=== PATIENT | female | born 1955 | race African-American/Black ===

== ENCOUNTER → 2017-03-05 | Outpatient (CLI) | payer OTHER ==
--- NOTE | 2017-03-05 09:12 | RAD ---
DATE: 03/05/2017 EXAM: DIGITAL SCREEN BILAT W/CAD HISTORY: Screening COMPARISON: 01/02/2016 This study was interpreted with the benefit of Computerized Aided Detection (CAD). FINDINGS: Breast Density: FATTY The Breast Parenchyma is primarily fatty replaced. Breast parenchyma level density A.. No dominant mass or suspect group calcifications is seen in either breast IMPRESSION: Benign findings BI-RADS CATEGORY: 2 BENIGN FINDING(S) RECOMMENDED FOLLOW-UP: 12M 12 MONTH FOLLOW-UP PQRS compliance statement: Patient information was entered into a reminder system with a target due date 03/05/2018 for the next mammogram. Mammography is a sensitive method for finding small breast cancers, but it does not detect them all and is not a substitute for careful clinical examination. A negative mammogram does not negate a clinically suspicious finding and should not result in delay in biopsying a clinically suspicious abnormality. "Our facility is accredited by the [employer] Mammography Program."
== END | disposition home or self-care (01) ==
LOC: MAMMO 08:50
PROVIDERS: ATTEND Family Medicine
DX: Z12.31 Encounter for screening mammogram for malignant neoplasm of breast (principal)
CPT/HCPCS: G0202; 77067

== ENCOUNTER → 2018-03-18 | Outpatient (CLI) | payer OTHER | END | disposition home or self-care (01) | LOC: MAMMO 11:51 | DX: Z12.31 Encounter for screening mammogram for malignant neoplasm of breast (principal) | CPT/HCPCS: 77063; 77067 ==

== ENCOUNTER → 2019-03-21 | Outpatient (CLI) | payer OTHER ==
--- NOTE | 2019-03-21 13:20 | RAD ---
DATE: 03/21/2019 EXAM: MAMMO NARINDER SCREENING BILATERAL HISTORY: Routine screening COMPARISON: 03/18/2018 This study was interpreted with the benefit of Computerized Aided Detection (CAD). Breast Density: SCATTERED The breast parenchyma shows scattered fibroglandular densities. Breast parenchyma level B. FINDINGS: 2-D and 3-D tomosynthesis imaging was performed in CC and MLO projections. No new or enlarging breast densities are seen. No suspicious microcalcifications are evident. IMPRESSION: There is no mammographic evidence of malignancy in either breast. BI-RADS CATEGORY: 2 BENIGN FINDING(S) RECOMMENDED FOLLOW-UP: 12M 12 MONTH FOLLOW-UP PQRS compliance statement: Patient information was entered into a reminder system with a target due date for the next mammogram. Mammography is a sensitive method for finding small breast cancers, but it does not detect them all and is not a substitute for careful clinical examination. A negative mammogram does not negate a clinically suspicious finding and should not result in delay in biopsying a clinically suspicious abnormality. "Our facility is accredited by the [employer] Mammography Program."
== END | disposition home or self-care (01) ==
LOC: MAMMO 09:52
PROVIDERS: ATTEND Family Medicine
DX: Z12.31 Encounter for screening mammogram for malignant neoplasm of breast (principal)
CPT/HCPCS: 77063; 77067

== ENCOUNTER → 2021-05-03 | Outpatient (CLI) | payer OTHER ==
[~2021-05-03] MED LIST: BUPIVACAINE MPF 0.5% 10 ML VIAL. INT ART ONE; IOHEXOL 300 MG/ML 50 ML VIAL. INT ART ONE; LIDOCAINE 1% Multi-Dose 20 ML VIAL. ID ONE; LOSA1TAB25 PO; methylPREDNISolone ACETATE 40 MG/ML VIAL. INT ART ONE
--- NOTE | 2021-05-03 17:19 | KCIC ---
EXAM: Fluoroscopically guided left hip joint injection of steroid and anesthetic INDICATION: Hip pain, arthritis COMPARISON: Left hip radiograph 02/04/2021 TECHNIQUE/FINDINGS: The purpose of the procedure and risks including infection, bleeding, contrast reaction, and pain wer e discussed with the patient. Informed consent was obtained. A timeout was performed. After obtaining consent, the patient was placed supine on the fluoroscopy table with the left hip int ernally rotated. The skin overlying the left hip was marked, sterilized and draped. Superficial and deep soft tissues were anesthetized with 1% lidocaine. Utilizing fluoroscopic guidance, a 22-gauge 3.5" needle was advanced into the joint. Intraarticular position was confirmed with injection of a sm all amount of iodinated contrast. Subsequently, a solution containing the following items was instill ed into the joint: 1 mL Depo-Medrol (80 mg/mL), 4 mL 0.5 percent bupivacaine 1 mL 1 percent lidocaine . At the end of the procedure, the needle was removed. The overlying skin was cleansed and covered w ith a bandaid. The patient tolerated the procedure well and was free of immediate complications. Tota l fluoroscopy time: 40 seconds.. IMPRESSION: Technically successful fluoroscopically guided left hip joint injection of steroid and a nesthetic. Electronically signed by: Wendy Booker MD (05/03/2021 5:16 PM) [id number]
== END | disposition home or self-care (01) ==
LOC: KCIC 14:29
PROVIDERS: ATTEND Orthopaedic Surgery
DX: M16.12 Unilateral primary osteoarthritis, left hip (principal); Z79.899 Other long term (current) drug therapy
CPT/HCPCS: 20610; 77002; J1030; J3490; Q9967

== ENCOUNTER → 2022-01-20 | Outpatient (CLI) | payer OTHER ==
[~2022-01-20] MED LIST changes: -BUPIVACAINE MPF 0.5% 10 ML VIAL. INT ART ONE; +ERGO2000 PO; +FERR325T14 PO; +HYDR12.575 PO; -IOHEXOL 300 MG/ML 50 ML VIAL. INT ART ONE; -LIDOCAINE 1% Multi-Dose 20 ML VIAL. ID ONE; +LOSA100T14 PO; -methylPREDNISolone ACETATE 40 MG/ML VIAL. INT ART ONE
[2022-01-20 09:17] LABS: BASO % 0 % (0-3); EOS # 0.1 x10^3/uL (0.0-0.7); EOS % 1 % (0-3); HEMATOCRIT 35.9 % (36.0-47.0); HEMOGLOBIN 11.8 g/dL (12.0-15.5); LYMPH # 1.7 x10^3/uL (1.0-4.8); LYMPH % 33 % (24-48); MEAN CORPUSCULAR HEMOGLOBIN 30 pg (25-35); MEAN CORPUSCULAR HGB CONC 33 g/dL (31-37); MEAN CORPUSCULAR VOLUME 93 fL (79-100); MONO # 0.3 x10^3/uL (0.0-1.1); MONO % 5 % (0-9); NEUT # 3.1 x10^3/uL (1.8-7.7); NEUT % 60 % (31-73); PLATELET COUNT 254 x10^3/uL (140-400); RED BLOOD COUNT 3.88 x10^6/uL (3.50-5.40); RED CELL DISTRIBUTION WIDTH 13.8 % (11.5-14.5); WHITE BLOOD COUNT 5.1 x10^3/uL (4.0-11.0)
[2022-01-20 09:20] LABS: PROTHROMBIN TIME PATIENT 12.7 SEC (11.7-14.0)
[2022-01-20 09:29] LABS: CALCIUM 9.5 mg/dL (8.5-10.1); CREATININE 1.2 mg/dL (0.6-1.0); GFR 53.9; POTASSIUM 3.7 mmol/L (3.5-5.1)
--- NOTE | 2022-01-20 12:28 | EKG ---
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
--- NOTE | 2022-01-20 15:08 | RAD ---
EXAM: XR CHEST 2V 01/20/2022 12:51 PM CLINICAL INDICATION: Preop right hip replacement 02/03/2022 COMPARISON: None TECHNIQUE: PA and lateral views of the chest FINDINGS: The heart and mediastinum are normal. Lungs are well-expanded and clear. No consolidatio n, pleural effusion, or pneumothorax. Pulmonary vascularity is normal. No acute osseous abnormality. 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 Severe bilateral acromioclavicular degenerative joint d isease. IMPRESSION: No acute cardiopulmonary abnormality. Electronically signed by: Wendy Booker MD (01/20/2022 3:06 PM) [id number]
[2022-01-21 00:34] LABS: HEMOGLOBIN A1C 5.8 % (4.8-5.6)
== END ==
LOC: SURGPAT 12:36
PROVIDERS: ATTEND Orthopaedic Surgery
DX: Z01.818 Encounter for other preprocedural examination (principal); M51.34 Other intervertebral disc degeneration, thoracic region; M16.12 Unilateral primary osteoarthritis, left hip; M19.012 Primary osteoarthritis, left shoulder; M19.011 Primary osteoarthritis, right shoulder
CPT/HCPCS: 36415; 71046; 80048; 82040; 82306; 83036; 85025; 85610; 85651; 85730; 87641; 93005

== ENCOUNTER 2022-02-03 06:45 | Observation (INO) | payer OTHER, MEDICARE ==
[2022-01-22 11:53] VITALS: BP 162/84
[~2022-02-03] VITALS: Ht 162.6 cm; Wt 3.5 kg
[~2022-02-03 06:45] MED LIST changes: +IV RINGERS,LACTATED 1000ML 1,000 ML IV SCH; +MORPHINE SULFATE 2 MG/ML INJ. IVP PRN; +TRANEXAMIC ACID in NS IVPB 50 ML INJ ONE; +fentaNYL PF VIAL 100 MCG/2 ML VIAL IVP PRN
[2022-02-03] MEDS ORDERED: MELOXICAM 7.5 MG TABLET PO ONE (07:00)
[2022-02-03] MEDS ORDERED: GABAPENTIN 300 MG CAPSULE. PO ONE (07:00)
[2022-02-03 07:25] VITALS: BP 174/89
[2022-02-03] MEDS ORDERED: MELO15TA23 PO (07:25)
[2022-02-03] MEDS ORDERED: GLYCOPYRROLATE 1 MG/5 ML VIAL. ONE (07:30)
[2022-02-03] MEDS ORDERED: LIDOCAINE 2% PF 5 ML VIAL. ONE (07:30)
[2022-02-03] MEDS ORDERED: DEXAMETHASONE SOD PHOS 4 MG/ML VIAL ONE (07:30)
[2022-02-03] MEDS ORDERED: ONDANSETRON PF 4 MG/2 ML VIAL. ONE (07:30)
[2022-02-03] MEDS ORDERED: PROPOFOL 10 MG/ML (20ML) VIAL. IV ONE (07:30)
[2022-02-03] MEDS ORDERED: SEVOFLURANE 61 TO 120 MINUTES. IH ONE ×2 (07:30→08:36)
[2022-02-03] MEDS ORDERED: MIDAZOLAM HCL/PF 2 MG/2 ML VIAL. ONE (07:31)
[2022-02-03] MEDS ORDERED: NEOSTIGMINE METHYLSULFATE 5 MG/5 ML SYRINGE. ONE (07:31)
[2022-02-03] MEDS ORDERED: ROCURONIUM 50 MG/5 ML VIAL. ONE ×2 (07:31→09:25)
[2022-02-03] MEDS ORDERED: fentaNYL PF VIAL 100 MCG/2 ML VIAL ONE ×2 (07:31→08:33)
[2022-02-03] MEDS ORDERED: TRANEXAMIC ACID in NS IVPB 100 ML ONE (07:32)
[2022-02-03] MEDS ORDERED: VANCOMYCIN 1 GM VIAL. ONE (07:32)
--- NOTE | 2022-02-03 07:42 | NUR ---
Removed codeine allergy from profile. Patient stated when she was younger the doctor recommended she not take it due to possible reaction after a procedure that she had.
[2022-02-03] MEDS ORDERED: ACETAMINOPHEN 500 MG TABLET PO PRN (07:45)
[2022-02-03] MEDS ORDERED: TRANEXAMIC ACID in NS IVPB 50 ML INJ ONE (08:00)
[2022-02-03] MEDS: MORPHINE SULFATE 2 MG/ML INJ. IVP PRN ×2 (08:00→10:38)
[2022-02-03] MEDS ORDERED: TV=62ml MORPHINE 5 MG, KETOROLAC 30 MG, ROPIV, EPI INT ART ONE (08:00)
[2022-02-03] MEDS ORDERED: IV DEXTROSE 5% 250 ML BAG. IV PRN (08:30)
[2022-02-03] MEDS ORDERED: 0.9 % SODIUM CHLORIDE 10 ML DISP.SYRIN. IV PRN (08:30)
[2022-02-03] MEDS ORDERED: CALCIUM CARBONATE 500 MG TAB.CHEW PO PRN ×2 (08:30→11:30)
[2022-02-03] MEDS ORDERED: DEXTROSE 50% 25 GM / 50ML DISP.SYRIN. IV PRN (08:30)
[2022-02-03] MEDS ORDERED: diphenhydrAMINE 50 MG/ML VIAL IVP PRN (08:30)
[2022-02-03] MEDS ORDERED: oxyCODONE IR 5 MG TABLET PO PRN (08:30)
[2022-02-03] MEDS: SENNOSIDES/DOCUSATE 8.6/50MG TABLET. PO SCH (09:00)
[2022-02-03] MEDS ORDERED: ESMOLOL 100 MG/10 ML VIAL. IVP ONE (09:07)
[2022-02-03] MEDS ORDERED: PHENYLEPHRINE in 0.9% NACL PF 1 MG/10 ML SYRINGE. IV ONE (09:22)
--- NOTE | 2022-02-03 09:59 | PDOC4 ---
OPERATIVE NOTE Date: Date: February 03, 2022 Pre-Op Diagnosis: 1. 67-year-old female primary osteoarthritis left hip Post-Op Diagnosis: 1. 67-year-old female primary osteoarthritis left hip 2. Status post left total hip arthroplasty Procedure Performed: 1. Left primary total hip arthroplasty Surgeon: Patricia Anesthesia Type: General Blood Loss: 150 cc Specimans Obtained: Products of left total hip arthroplasty. Complications: Patient tolerated the procedure well without any apparent complications. Operative Note: See dictation. JEANINE BEE February 03, 2022 09:59
[2022-02-03] MEDS ORDERED: PROCHLORPERAZINE 10 MG/2 ML VIAL. ONE (10:35)
[2022-02-03] MEDS: PROCHLORPERAZINE 10 MG/2 ML VIAL. IVP PRN ×2 (10:38→11:10)
[2022-02-03] MEDS ORDERED: HYDROmorphone 2 MG/ML INJ. ONE (10:55)
[2022-02-03] MEDS: HYDROmorphone 2 MG/ML INJ. IVP PRN ×2 (11:11→11:57)
--- NOTE | 2022-02-03 11:22 | PDOC1 ---
History and Physical Date of Service: DOS: DATE: 02/03/22 TIME: :22 Chief Complaint: Chief Complain: Status post total hip arthroplasty History of Present Illness: HPI: Patient is a 61-year-old female seen in PACU after undergoing planned left hip arthroplasty. Hospitalist consulted for medical management. Patient underwent hip replacement for osteoarthritis. Other history includes hypertension. Evaluated patient without any sort of complaint. Pain well-controlled. Past Medical/Surgical History: PMH/PSH: Hypertension Allergies: Allergies: Coded Allergies: No Known Drug Allergies (Unverified , 02/03/22) Family History: Family History: No known per patient Social History: Social History: Denies alcohol tobacco drug use Current Medications: Current Medications Current Medications Fentanyl Citrate (Fentanyl 2ml Vial) 25 mcg PRN Q5MIN PRN IVP MILD PAIN 1-3; Start 02/03/22 at 06:00; Stop 02/05/22 at 05:59 Fentanyl Citrate (Fentanyl 2ml Vial) 50 mcg PRN Q5MIN PRN IVP MODERATE PAIN 4- 6; Start 02/03/22 at 06:00; Stop 02/05/22 at 05:59 Morphine Sulfate (Morphine Sulfate) 1 mg PRN Q10MIN PRN IVP SEVERE PAIN 7-10; Start 02/03/22 at 06:00; Stop 02/05/22 at 05:59; Status Cancel Ringer's Solution 1,000 ml @ 30 mls/hr Q24H IV Last administered on 02/03/22at 07:36; Start 02/03/22 at 06:00; Stop 02/04/22 at 05:59 Hydromorphone HCl (Dilaudid) 0.5 mg PRN Q10MIN PRN IVP SEVERE PAIN 7-10, 2nd CHOICE Last administered on 02/03/22at 11:11; Start 02/03/22 at 06:00; Stop 02/05/22 at 05:59 Prochlorperazine Edisylate (Compazine) 5 mg PACU PRN PRN IVP NAUSEA, MRX1 Last administered on 02/03/22at 11:10; Start 02/03/22 at 06:00; Stop 02/05/22 at 05:59 Tranexamic Acid 50 ml @ 50 mls/hr 1X PERIOP ONCE INJ Last administered on 02/03/22at 09:02; Start 02/03/22 at 06:00; Stop 02/03/22 at 07:00; Status DC Tranexamic Acid 50 ml @ 50 mls/hr 1X PERIOP ONCE INJ ; Start 02/03/22 at 08:00; Stop 02/03/22 at 08:59; Status DC Cefazolin Sodium/ Dextrose 50 ml @ 100 mls/hr 1X PREOP PRN IV PRIOR TO PROCEDURE Last administered on 02/03/22at 08:12; Start 02/03/22 at 06:00; Stop 02/03/22 at 18:00 Meloxicam (Mobic) 15 mg 1X ONCE PO Last administered on 02/03/22at 07:36; Start 02/03/22 at 07:00; Stop 02/03/22 at 07:01; Status DC Gabapentin (Neurontin) 600 mg 1X ONCE PO Last administered on 02/03/22at 07:37; Start 02/03/22 at 07:00; Stop 02/03/22 at 07:01; Status DC Propofol (Diprivan) 200 mg STK-MED ONCE IV ; Start 02/03/22 at 07:30; Stop 02/03/22 at 07:30; Status DC Dexamethasone Sodium Phosphate (Decadron) 4 mg STK-MED ONCE .ROUTE ; Start 02/03/22 at 07:30; Stop 02/03/22 at 07:30; Status DC Lidocaine HCl (Lidocaine Pf 2% Vial) 5 ml STK-MED ONCE .ROUTE ; Start 02/03/22 at 07:30; Stop 02/03/22 at 07:31; Status DC Ondansetron HCl (Zofran) 4 mg STK-MED ONCE .ROUTE ; Start 02/03/22 at 07:30; Stop 02/03/22 at 07:31; Status DC Glycopyrrolate (Robinul) 1 mg STK-MED ONCE .ROUTE ; Start 02/03/22 at 07:30; Stop 02/03/22 at 07:31; Status DC Sevoflurane (Ultane) 60 ml STK-MED ONCE IH ; Start 02/03/22 at 07:30; Stop 02/03/22 at 07:31; Status DC Rocuronium [place] (Zemuron) 50 mg STK-MED ONCE .ROUTE ; Start 02/03/22 at 07:31; Stop 02/03/22 at 07:31; Status DC Neostigmine [place] (Neostigmine Methylsulfate) 5 mg STK-MED ONCE .ROUTE ; Start 02/03/22 at 07:31; Stop 02/03/22 at 07:31; Status DC Midazolam HCl (Versed) 2 mg STK-MED ONCE .ROUTE ; Start 02/03/22 at 07:31; Stop 02/03/22 at 07:31; Status DC Fentanyl Citrate (Fentanyl 2ml Vial) 100 mcg STK-MED ONCE .ROUTE ; Start 02/03/22 at 07:31; Stop 02/03/22 at 07:32; Status DC Tranexamic Acid 100 ml @ As Directed STK-MED ONCE .ROUTE ; Start 02/03/22 at 07:32; Stop 02/03/22 at 07:32; Status DC Vancomycin HCl (Vancomycin) 1 gm STK-MED ONCE .ROUTE ; Start 02/03/22 at 07:32; Stop 02/03/22 at 07:33; Status DC Morphine Sulfate 5 mg/Ketorolac Tromethamine 30 mg/Ropivacaine 60 ml/Epinephrine HCl 0.5 mg/ Miscellaneous 63 ml @ 63 mls/hr 1X PERIOP ONCE INT ART ; Start 02/03/22 at 08:00; Stop 02/03/22 at 08:59; Status DC Acetaminophen (Tylenol) 1,000 mg 1X PREOP PRN PO PRIOR TO PROCEDURE Last administered on 02/03/22at 07:57; Start 02/03/22 at 07:45 Morphine Sulfate (Morphine Sulfate) 2 mg PRN Q1HR PRN IVP PAIN-SEE COMMENTS Last administered on 02/03/22at 10:38; Start 02/03/22 at 08:30 Diphenhydramine HCl (Benadryl) 25 mg PRN Q6HRS PRN IVP ITCHING; Start 02/03/22 at 08:30 Senna/Docusate Sodium (Senna Plus) 1 tab DAILY PO ; Start 02/03/22 at 09:00 Magnesium Hydroxide (Milk Of Magnesia) 2,400 mg 1X PRN PRN PO CONSTIPATION; Start 02/04/22 at 06:00; Stop 02/05/22 at 05:59 Bisacodyl (Dulcolax Supp) 10 mg 1X PRN PRN [place] CONSTIPATION; Start 02/04/22 at 16:00; Stop 02/05/22 at 15:59 Calcium Carbonate/ Glycine (Tums) 500 mg PRN QID PRN PO INDIGESTION; Start 02/03/22 at 08:30 Sodium Chloride (Normal Saline Flush) 10 ml QSHIFT PRN IV AFTER MEDS AND BLOOD DRAWS; Start 02/03/22 at 08:30 Acetaminophen (Tylenol) 1,000 mg Q6H PO ; Start 02/04/22 at 09:00 Ondansetron HCl (Zofran) 4 mg Q6HRS IVP ; Start 02/03/22 at 12:00; Stop 02/04/22 at 06:01 Ondansetron HCl (Zofran Odt) 4 mg Q6HRS PO ; Start 02/03/22 at 12:00; Stop 02/04/22 at 06:01 Oxycodone HCl (Roxicodone) 5 mg PRN Q4HRS PRN PO Pain score 4-6; Start 02/03/22 at 08:30 Dextrose (Dextrose 50%-Water Syringe) 12.5 gm PRN Q15MIN PRN IV SEE COMMENTS; Start 02/03/22 at 08:30 Dextrose (Iv Dextrose 5%) 250 ml PRN Q15MIN PRN IV SEE COMMENTS; Start 02/03/22 at 08:30 Fentanyl Citrate (Fentanyl 2ml Vial) 100 mcg STK-MED ONCE .ROUTE ; Start 02/03/22 at 08:33; Stop 02/03/22 at 08:33; Status DC Sevoflurane (Ultane) 60 ml STK-MED ONCE IH ; Start 02/03/22 at 08:36; Stop 02/03/22 at 08:36; Status DC Esmolol HCl (Brevibloc) 100 mg STK-MED ONCE IVP ; Start 02/03/22 at 09:07; Stop 02/03/22 at 09:07; Status DC Phenylephrine HCl (PHENYLEPHRINE in 0.9% NACL PF) 1 mg STK-MED ONCE IV ; Start 02/03/22 at 09:22; Stop 02/03/22 at 09:22; Status DC Rocuronium [place] (Zemuron) 50 mg STK-MED ONCE .ROUTE ; Start 02/03/22 at 09:25; Stop 02/03/22 at 09:25; Status DC Prochlorperazine Edisylate (Compazine) 10 mg STK-MED ONCE .ROUTE ; Start 02/03/22 at 10:35; Stop 02/03/22 at 10:36; Status DC Hydromorphone HCl (Dilaudid) 2 mg STK-MED ONCE .ROUTE ; Start 02/03/22 at 10:55; Stop 02/03/22 at 10:55; Status DC Ondansetron HCl (Zofran) 4 mg PRN Q6HRS PRN IVP NAUSEA/VOMITING; Start 02/03/22 at 11:30; Status UNV Calcium Carbonate/ Glycine (Tums) 500 mg PRN Q3HRS PRN PO UPSET STOMACH; Start 02/03/22 at 11:30; Status UNV Info (Non-Icu Electrolyte Protocol) 1 ea PRN DAILY PRN MC SEE COMMENTS; Start 02/03/22 at 11:30; Status UNV Oxycodone/ Acetaminophen (Percocet 5/325) 1 tab PRN Q4HRS PRN PO MILD PAIN, 1ST CHOICE; Start 02/03/22 at 11:30; Status UNV Active Scripts Active Reported Meloxicam 15 Mg Tablet 15 Mg PO 1X PERIOP PRN Ferrous Sulfate 325 Mg Tablet 325 Mg PO DAILY Vitamin D2 (Ergocalciferol (Vitamin D2)) 50 Mcg Tablet 50 Mcg PO DAILY Hydrochlorothiazide Capsule (Hydrochlorothiazide) 12.5 Mg Capsule 12.5 Mg PO DAILY Losartan Potassium 100 Mg Tablet 100 Mg PO DAILY ROS: Review of Systems Review of System Unless noted in HPI 14 point review systems was negative Physical Exam: Vital Signs: Vital Signs Date Time Temp Pulse Resp B/P (MAP) Pulse Ox O2 Delivery O2 Flow Rate FiO2 02/03/22 11:11 20 Room Air 02/03/22 11:00 58 131/55 93 02/03/22 10:45 10.0 02/03/22 10:17 97.0 97.0 Physcial Exam: GEN: No apparent distress. Alert and oriented HEENT: Normal cephalic, atraumatic, external auditory canals are patent EYES: Extraocular muscles are intact, pupil are equally round and reactive to light and accommodation MUSCULOSKELETAL: Limited range of motion given recent surgery ENDOCRINE: No thyromegaly was palpated LYMPHATICS: No cervical chain or axillary nodes were noted HEMATOPOIETIC: No bruising NECK: Supple, no JVD, no thyromegaly was noted LUNGS: Clear to auscultation in all lung garcia without rhonchi or wheezing HEART: RRR, S1, S2 present. Peripheral pulses intact, no obvious murmurs noted ABDOMEN: Soft, nontender. Positive bowel sounds, no organomegaly, normal bowel sounds EXTREMITIES: Without clubbing, cyanosis, or edema. Pedal pulses intact. Negative Homans sign NEUROLOGIC: Normal speech and tone. A&O x 3, moves all extremities, no obvious focal deficits PSYCHIATRIC: Normal affect, normal mood. Stable SKIN: No ulcerations or rashes, good skin turgor, no jaundice VASCULAR: Good capillary refill, neurovascular bundle appears to be intact Labs: Labs: Laboratory Tests Test 02/03/22 07:05 POC SARS CoV-2 Antigen Negative (NEGATIVE) Laboratory Tests Test 02/03/22 07:05 POC SARS CoV-2 Antigen Negative (NEGATIVE) Assessment/Plan Assessment/Plan Status post left total hip arthroplasty, history of hypertension, iron deficiency anemia -Underwent left MI February without complication. -Hospitalist consulted for medical management. -Does have history of hypertension. Will resume her regularly scheduled home meds -As needed pain control -PT OT when okay with orthopedics -Advance diet as tolerated Justifications for Admission Other Justification OH VAZQUEZ MD February 03, 2022 11:22
[2022-02-03] MEDS ORDERED: ACETAMINOPHEN 325 MG TABLET. PO PRN (11:30)
[2022-02-03] MEDS ORDERED: ONDANSETRON PF 4 MG/2 ML VIAL. IVP PRN (11:30)
[2022-02-03] MEDS ORDERED: ELECTROLYTE (NON-ICU) PROTOCOL. MC PRN (11:30)
[2022-02-03] MEDS: CHOLECALCIFEROL (VITAMIN D3) 1,000 UNIT TABLET PO SCH (12:00)
[2022-02-03] MEDS: hydroCHLOROthiazide 12.5 MG TABLET PO SCH (12:00)
[2022-02-03] MEDS: ONDANSETRON ODT 4 MG TAB.RAPDIS. PO SCH ×3 (12:00→22:55)
[2022-02-03] MEDS: ONDANSETRON PF 4 MG/2 ML VIAL. IVP SCH ×3 (12:00→22:54)
[2022-02-03] MEDS: FERROUS SULFATE 325 MG TABLET. PO SCH (12:25)
[2022-02-03] MEDS: LOSARTAN POTASSIUM 50 MG TABLET. PO SCH (12:35)
[2022-02-03 12:36] LABS: ALBUMIN 3.4 g/dL (3.4-5.0); ALBUMIN/GLOBULIN RATIO 0.8 (1.0-1.7); CALCIUM 8.8 mg/dL (8.5-10.1); CREATININE 1.3 mg/dL (0.6-1.0); GFR 49.1; POTASSIUM 3.6 mmol/L (3.5-5.1); TOTAL BILIRUBIN 0.3 mg/dL (0.2-1.0); TOTAL PROTEIN 7.5 g/dL (6.4-8.2)
[2022-02-03 13:24] LABS: BASO % 0 % (0-3); EOS % 0 % (0-3); HEMATOCRIT 31.6 % (36.0-47.0); HEMOGLOBIN 10.5 g/dL (12.0-15.5); LYMPH # 1.1 x10^3/uL (1.0-4.8); LYMPH % 7 % (24-48); MEAN CORPUSCULAR HEMOGLOBIN 31 pg (25-35); MEAN CORPUSCULAR HGB CONC 33 g/dL (31-37); MEAN CORPUSCULAR VOLUME 93 fL (79-100); MONO # 0.2 x10^3/uL (0.0-1.1); MONO % 1 % (0-9); NEUT % 92 % (31-73); PLATELET COUNT 249 x10^3/uL (140-400); RED BLOOD COUNT 3.39 x10^6/uL (3.50-5.40); RED CELL DISTRIBUTION WIDTH 13.4 % (11.5-14.5); WHITE BLOOD COUNT 17.3 x10^3/uL (4.0-11.0)
--- NOTE | 2022-02-03 14:25 | RAD ---
EXAM: XR LT HIP (WITH OR WITHOUT PELVIS) 2 VIEWS 02/03/2022 9:59 AM CLINICAL INDICATION: Postop left hip replacement COMPARISON: Left hip radiograph 01/07/2022 TECHNIQUE: AP view of the pelvis. AP and crosstable lateral view of the left hip FINDINGS: There is a new left total hip prosthesis in expected alignment. There is no periprosthetic fracture. There is expected postoperative soft tissue gas in the left hip. IMPRESSION: Expected immediate post surgical changes of left total hip arthroplasty. Electronically signed by: Wendy Booker MD (02/03/2022 2:23 PM) [id number]
[2022-02-03 15:00] VITALS: BP 112/62
[2022-02-03 19:30] VITALS: BP 115/72
[2022-02-03] MEDS: oxyCODONE/APAP 5/325 1 TAB TABLET PO PRN (22:54)
[2022-02-03 23:15] VITALS: BP 146/64
[2022-02-04 03:00] VITALS: BP 140/66
[2022-02-04] MEDS: ONDANSETRON ODT 4 MG TAB.RAPDIS. PO SCH (05:16)
[2022-02-04] MEDS: ONDANSETRON PF 4 MG/2 ML VIAL. IVP SCH (05:16)
[2022-02-04 05:36] LABS: HEMATOCRIT 28.7 % (36.0-47.0); HEMOGLOBIN 9.4 g/dL (12.0-15.5)
[2022-02-04] MEDS: oxyCODONE/APAP 5/325 1 TAB TABLET PO PRN ×4 (05:55→17:24)
[2022-02-04] MEDS ORDERED: MAGNESIUM HYDROXIDE 2,400 MG/30 ML ORAL.SUSP. PO PRN (06:00)
[2022-02-04 07:00] VITALS: BP 141/50
--- NOTE | 2022-02-04 07:35 | PDOC ---
PROGRESS NOTES Date of Service DATE: 02/04/22 TIME: 07:31 Subjective Subjective POD #1 s/p L MI Patient was seen and examined this morning. Awake lying supine in bed. Very pleasant. Conversational. Reports pain to left hip controlled postoperatively. Denies chest pain or shortness of air. No abdominal pain or discomfort. Patient able to void postoperatively. 900 on IS. No acute events overnight. Objective Vital Signs Vital Signs Date Time Temp Pulse Resp B/P (MAP) Pulse Ox O2 Delivery O2 Flow Rate FiO2 02/04/22 06:25 18 98 Room Air 02/04/22 03:00 97.7 89 140/66 (90) 97.7 02/03/22 10:45 10.0 Physical Exam Orthopedic examination of the left hip: Skin is warm and dry. Surgical dressing intact. No drainage or discharge noted. Compartments are of the left lower extremity are soft compressible. EHL/FHL intact. Plantarflexion/dorsiflexion intact. Wiggles all toes on command. Sensation to light touch intact throughout all dermatomes. Cap refill brisk. Left lower extremity is warm and well-perfused. Calf nontender. No pain with passive stretch. No evidence of thrombus. Labs Laboratory Tests Test 02/03/22 07:05 02/03/22 12:10 02/04/22 04:55 POC SARS CoV-2 Antigen Negative (NEGATIVE) White Blood Count 17.3 x10^3/uL (4.0-11.0) Red Blood Count 3.39 x10^6/uL (3.50-5.40) Hemoglobin 10.5 g/dL (12.0-15.5) 9.4 g/dL (12.0-15.5) Hematocrit 31.6 % (36.0-47.0) 28.7 % (36.0-47.0) Mean Corpuscular Volume 93 fL (79-100) Mean Corpuscular Hemoglobin 31 pg (25-35) Mean Corpuscular Hemoglobin Concent 33 g/dL (31-37) 33 g/dL (31-37) Red Cell Distribution Width 13.4 % (11.5-14.5) Platelet Count 249 x10^3/uL (140-400) Neutrophils (%) (Auto) 92 % (31-73) Lymphocytes (%) (Auto) 7 % (24-48) Monocytes (%) (Auto) 1 % (0-9) Eosinophils (%) (Auto) 0 % (0-3) Basophils (%) (Auto) 0 % (0-3) Neutrophils # (Auto) 16.0 x10^3/uL (1.8-7.7) Lymphocytes # (Auto) 1.1 x10^3/uL (1.0-4.8) Monocytes # (Auto) 0.2 x10^3/uL (0.0-1.1) Eosinophils # (Auto) 0.0 x10^3/uL (0.0-0.7) Basophils # (Auto) 0.0 x10^3/uL (0.0-0.2) Sodium Level 139 mmol/L (136-145) Potassium Level 3.6 mmol/L (3.5-5.1) Chloride Level 104 mmol/L (98-107) Carbon Dioxide Level 25 mmol/L (21-32) Anion Gap 10 (6-14) Blood Urea Nitrogen 22 mg/dL (7-20) Creatinine 1.3 mg/dL (0.6-1.0) Estimated GFR (Cockcroft-Gault) 49.1 BUN/Creatinine Ratio 17 (6-20) Glucose Level 201 mg/dL (70-99) Calcium Level 8.8 mg/dL (8.5-10.1) Total Bilirubin 0.3 mg/dL (0.2-1.0) Aspartate Amino Transf (AST/SGOT) 26 U/L (15-37) Alanine Aminotransferase (ALT/SGPT) 28 U/L (14-59) Alkaline Phosphatase 58 U/L (46-116) Total Protein 7.5 g/dL (6.4-8.2) Albumin 3.4 g/dL (3.4-5.0) Albumin/Globulin Ratio 0.8 (1.0-1.7) Laboratory Tests Test 02/03/22 12:10 02/04/22 04:55 White Blood Count 17.3 x10^3/uL (4.0-11.0) Red Blood Count 3.39 x10^6/uL (3.50-5.40) Hemoglobin 10.5 g/dL (12.0-15.5) 9.4 g/dL (12.0-15.5) Hematocrit 31.6 % (36.0-47.0) 28.7 % (36.0-47.0) Mean Corpuscular Volume 93 fL (79-100) Mean Corpuscular Hemoglobin 31 pg (25-35) Mean Corpuscular Hemoglobin Concent 33 g/dL (31-37) 33 g/dL (31-37) Red Cell Distribution Width 13.4 % (11.5-14.5) Platelet Count 249 x10^3/uL (140-400) Neutrophils (%) (Auto) 92 % (31-73) Lymphocytes (%) (Auto) 7 % (24-48) Monocytes (%) (Auto) 1 % (0-9) Eosinophils (%) (Auto) 0 % (0-3) Basophils (%) (Auto) 0 % (0-3) Neutrophils # (Auto) 16.0 x10^3/uL (1.8-7.7) Lymphocytes # (Auto) 1.1 x10^3/uL (1.0-4.8) Monocytes # (Auto) 0.2 x10^3/uL (0.0-1.1) Eosinophils # (Auto) 0.0 x10^3/uL (0.0-0.7) Basophils # (Auto) 0.0 x10^3/uL (0.0-0.2) Sodium Level 139 mmol/L (136-145) Potassium Level 3.6 mmol/L (3.5-5.1) Chloride Level 104 mmol/L (98-107) Carbon Dioxide Level 25 mmol/L (21-32) Anion Gap 10 (6-14) Blood Urea Nitrogen 22 mg/dL (7-20) Creatinine 1.3 mg/dL (0.6-1.0) Estimated GFR (Cockcroft-Gault) 49.1 BUN/Creatinine Ratio 17 (6-20) Glucose Level 201 mg/dL (70-99) Calcium Level 8.8 mg/dL (8.5-10.1) Total Bilirubin 0.3 mg/dL (0.2-1.0) Aspartate Amino Transf (AST/SGOT) 26 U/L (15-37) Alanine Aminotransferase (ALT/SGPT) 28 U/L (14-59) Alkaline Phosphatase 58 U/L (46-116) Total Protein 7.5 g/dL (6.4-8.2) Albumin 3.4 g/dL (3.4-5.0) Albumin/Globulin Ratio 0.8 (1.0-1.7) Imaging AP and lateral x-rays of the left hip performed postoperatively on 02/03/2022 were reviewed this morning. Orthopedic hardware in place with no acute postoperative abnormalities noted. Assessment Assessment 67 y/o F primary osteoarthritis L hip s/p L MI 02/03 - Patricia * WBAT LLE * Anterior lateral hip precautions to include no extension past neutral, no adduction past midline, no external rotation past neutral x6 weeks. * PT/OT for mobilization, gait training and fall prevention * Maintain surgical dressings left hip * Ice operative extremity as needed for pain and discomfort * Hgb 9.4 this AM 02/04; VSS * DVT ppx (ASA 325mg BID) * Post-op abx (Cefazolin) * Encourage use of IS while awake * CM for discharge planning; awaiting therapy recommendations post-op * Follow up with orthopedic clinic in 1-2 weeks following discharge from the hospital. [phone] Justicifation of Admission Dx: Justifications for Admission: Justification of Admission Dx: Yes JEANINE BEE February 04, 2022 07:35
[2022-02-04] MEDS: hydroCHLOROthiazide 12.5 MG TABLET PO SCH (08:32)
[2022-02-04] MEDS: CHOLECALCIFEROL (VITAMIN D3) 1,000 UNIT TABLET PO SCH (08:32)
[2022-02-04] MEDS: FERROUS SULFATE 325 MG TABLET. PO SCH (08:32)
[2022-02-04] MEDS: LOSARTAN POTASSIUM 50 MG TABLET. PO SCH (08:33)
[2022-02-04] MEDS: ASPIRIN 325 MG TABLET PO SCH ×2 (08:38→20:45)
[2022-02-04] MEDS: SENNOSIDES/DOCUSATE 8.6/50MG TABLET. PO SCH (08:38)
[2022-02-04] MEDS: ACETAMINOPHEN 500 MG TABLET PO SCH ×3 (09:00→21:00)
[2022-02-04 10:58] VITALS: BP 113/53
[2022-02-04 15:00] VITALS: BP 133/44
[2022-02-04] MEDS ORDERED: BISACODYL 10 MG SUPP.RECT. PR PRN (16:00)
[2022-02-04 19:00] VITALS: BP 146/45
--- NOTE | 2022-02-04 20:48 | OP ---
DATE OF SURGERY: 02/04/2022 PREOPERATIVE DIAGNOSIS: Severe degenerative joint disease, left hip. POSTOPERATIVE DIAGNOSIS: Severe degenerative joint disease, left hip. PROCEDURE: Left total hip arthroplasty. SURGEON: Nate Gomez JR, DO PURCHASING/RECEIVING: FLETCHER Lockett ANESTHESIA: General. COMPLICATIONS: None. ESTIMATED BLOOD LOSS: 150 mL. COMPONENTS: Size 5 femur, 52 acetabular shell with an E liner, +0 femoral ceramic head. DESCRIPTION OF PROCEDURE: The patient was taken to the operative suite, given a general anesthetic, placed in the lateral decubitus position with the affected hip upright. Bony prominences were well padded. The left hip was then prepped and draped in sterile fashion. Incision was made through skin and subcutaneous tissues. Superficial bleeding was coagulated using a Bovie knife. This was taken down to the iliotibial band, which was split in line with the incision and retracted anteriorly and posteriorly. Portion of the gluteus medius was removed, the inferior 1/3 and this was retracted anteriorly, followed by the gluteus minimus. The capsule was identified and opened up in an H fashion and the hip was subsequently manually dislocated. One fingerbreadth above the lesser trochanter, the cut was made in the femur using the guide for appropriate alignment and site of cut. The head was then measured out to be a 48-49 mm head. Severe changes were noted both on the femoral and acetabular sides of the joint. Due to the size of the femur, acetabular reaming began at size 44, continued at 2 mm increments up to 50 and then at 51 and 52 mm. It was noted to be stable at 52. Therefore, after reaming, a good blood was noted within the acetabulum. The shell was then impacted into the acetabulum. This was secured using 2 screws, one of 25 and one of 30 mm of length. Following this, the acetabular shell was then placed and impacted and noted to be stable and secured. The femur was opened up with a final cigar and box examiner, followed by the IM guide. This was began broaching with a femoral broach at 0 and continued up to size 5, which was noted to be complete fill of the femoral canal. This was then trialled using a +0 length femoral head. This was noted to be taken into the extremes in range of motion and was noted to be very stable and secure throughout the arc of motion. Pistoning was noted to be intact. The hip was then manually dislocated. All trials were removed. The actual femoral component, followed by the femoral head, ceramic +0 was then placed and impacted on the femur and the femoral component, this was secured and was reduced. This was then subsequently taken through range of motion of the hip extremes of range of motion, but no instability was noted. Therefore, this was thoroughly irrigated and suctioned dry. This was then irrigated again with Betadine solution and it is completely irrigated again. The capsule was then reapproximated in an interrupted fashion. The gluteus medius and minimus were reapproximated to their original sites of insertion. The iliotibial band was closed in a running fashion. The superficial tissue and skin was reapproximated. Sterile dressing was applied. The patient was then taken from the operative bed to the postoperative bed, taken to the PACU in stable condition. DEBBIE PALMER: Aliza TID: [id number]
--- NOTE | 2022-02-04 21:15 | PDOC ---
[facility] PROGRESS NOTE Date of Service DOS: DATE: 02/04/22 TIME: 21:13 Chief Complaint Chief Complaint Status post left total hip arthroplasty, history of hypertension, iron d eficiency anemia -Underwent left MI February without complication. -Hospitalist consulted for medical management. -Does have history of hypertension. Will resume her regularly scheduled home meds -As needed pain control -PT OT when okay with orthopedics -Advance diet as tolerated History of Present Illness History of Present Illness 02/04 Patient evaluated examined at bedside. She was up sitting in the chair with 2 family members at bedside. Discussed with them plan of care. Patient said pain was very well managed and that she enjoyed working with therapy yesterday. Planning on working with her again today. Informed her rehab may be recommended or home home health. She said she would agree to what ever option was best for her. Discussed with bedside RN. Ortho recommendations reviewed. Vitals/I&O Vitals/I&O: Vital Signs Date Time Temp Pulse Resp B/P (MAP) Pulse Ox O2 Delivery O2 Flow Rate FiO2 02/04/22 15:00 97.5 86 18 133/44 (73) 98 Room Air 97.5 02/04/22 09:00 10.0 I & O 02/03/22 02/03/22 02/04/22 15:00 23:00 07:00 Intake Total 1100 ml 0 ml 200 ml Output Total 150 ml 450 ml Balance 950 ml 0 ml -250 ml Physical Exam General: Alert, Oriented X3, Cooperative Heart: Regular rate, Normal S1, Normal S2 Lungs: Clear Abdomen: Normal bowel sounds, Soft, No tenderness Extremities: No edema, Normal pulses Skin: No rashes, No breakdown Labs Labs: Laboratory Tests Test 02/04/22 04:55 Hemoglobin 9.4 g/dL (12.0-15.5) Hematocrit 28.7 % (36.0-47.0) Mean Corpuscular Hemoglobin Concent 33 g/dL (31-37) Comment Review of Relevant I have reviewed the following items opal (where applicable) has been applied. Medications: Current Medications Medications (Trade) Dose Ordered Sig/Erika Route PRN Reason Start Time Stop Time Status Last Admin Dose Admin Aspirin (Robert Aspirin) 325 mg BID PO 02/04/22 09:00 02/04/22 20:45 Justifications for Admission Other Justification OH VAZQUEZ MD February 04, 2022 21:15
[2022-02-04 23:00] VITALS: BP 141/56
[2022-02-05] MEDS: oxyCODONE/APAP 5/325 1 TAB TABLET PO PRN ×2 (00:30→13:20)
[2022-02-05 03:00] VITALS: BP 114/60
[2022-02-05] MEDS: ACETAMINOPHEN 500 MG TABLET PO SCH ×3 (03:00→15:00)
[2022-02-05 05:15] LABS: HEMATOCRIT 25.4 % (36.0-47.0); HEMOGLOBIN 8.7 g/dL (12.0-15.5)
[2022-02-05 07:38] VITALS: BP 151/71
--- NOTE | 2022-02-05 07:46 | PDOC ---
[facility] PROGRESS NOTE Date of Service DOS: DATE: 02/05/22 TIME: 07:45 Chief Complaint Chief Complaint Postop day 2 left total hip arthroplasty, history of hypertension, iron deficiency anemia History of Present Illness History of Present Illness 02/05/2022 Patient seen and examined Clinically she looks great Discussed with RN Chart reviewed The patient would like to go home with home health 02/04 Patient evaluated examined at bedside. She was up sitting in the chair with 2 family members at bedside. Discussed with them plan of care. Patient said pain was very well managed and that she enjoyed working with therapy yesterday. Planning on working with her again today. Informed her rehab may be recommended or home home health. She said she would agree to what ever option was best for her. Discussed with bedside RN. Ortho recommendations reviewed. Vitals/I&O Vitals/I&O: Vital Signs Date Time Temp Pulse Resp B/P (MAP) Pulse Ox O2 Delivery O2 Flow Rate FiO2 02/05/22 07:38 98.3 102 18 151/71 (97) 99 Room Air 98.3 02/04/22 09:00 10.0 I & O 02/04/22 02/04/22 02/05/22 15:00 23:00 07:00 Intake Total 240 ml 120 ml Balance 240 ml 120 ml Physical Exam General: Alert, Oriented X3, Cooperative Heart: Regular rate, Normal S1, Normal S2 Lungs: Clear Abdomen: Normal bowel sounds, Soft, No tenderness Extremities: No edema, Normal pulses Skin: No rashes, No breakdown Labs Labs: Laboratory Tests Test 02/05/22 04:45 Hemoglobin 8.7 g/dL (12.0-15.5) Hematocrit 25.4 % (36.0-47.0) Mean Corpuscular Hemoglobin Concent 34 g/dL (31-37) Assessment and Plan Assessmemt and Plan Postop day 2 left total hip arthroplasty, history of hypertension, iron deficiency anemia Plan Seems stable for discharge with home health Follow-up PCP in 1 week Continue home medicines As needed pain meds Comment Review of Relevant I have reviewed the following items opal (where applicable) has been applied. Medications: Current Medications Medications (Trade) Dose Ordered Sig/Erika Route PRN Reason Start Time Stop Time Status Last Admin Dose Admin Aspirin (Robert Aspirin) 325 mg BID PO 02/04/22 09:00 02/04/22 20:45 Justifications for Admission Other Justification KARLA NEWMAN III DO February 05, 2022 07:46
[2022-02-05] MEDS ORDERED: OXYC1TAB15 PO (07:49)
--- NOTE | 2022-02-05 07:50 | SNU/HH DC ---
DISCHARGE WITH HOME HEALTH DISCHARGE INFORMATION: Condition on Discharge: Stable CODE STATUS: Code Status: Full HOME HEALTH: Face to Face: I certify this patient is under my care and that I, or a nurse practitioner or physician's administrative support assistant working with me, had a face to face encounter that meets the physician face to face encounter requirements with this patient on []. Medical Complications: DJD, Other (Recent hip replacement) Group Home For: Assess & Educate Safety RN For Eval/Treatment: Yes Physical Therapy For: Evalulation/Treatment Occupational Therapy For: Evaluation/Treatment Home Health Aide For: Self-care LACE SEWER For: Community Resources Pt Meets Homebound Status: Poor coordination w/ amb. POST DISCHARGE ORDERS: DIET AFTER DISCHARGE: Cardiac CERTIFICATION STATEMENT: Certification Statement: Certification Statement: Based on the above finding, I certify that this patient is confined to the home and needs intermittent detention care, physical therapy and/or speech therapy, or continues to need occupational therapy.~ This patient is under my care, and I have initiated the establishment of the plan of care.~ This patient will be followed by myself or a community physician who will periodically review the plan of care. Home Meds Active Scripts Oxycodone/Apap 5-325 (PERCOCET 5-325 MG TABLET ) 1 Each Tablet, 1 TAB PO PRN Q4HRS PRN for MILD PAIN, 1ST CHOICE for 10 Days, #20 TAB Prov:KARLA NEWMAN III DO 02/05/22 Reported Medications Meloxicam (MELOXICAM) 15 Mg Tablet, 15 MG PO 1X PERIOP PRN for PAIN, TAB 02/03/22 Ferrous Sulfate (FERROUS SULFATE) 325 Mg Tablet, 325 MG PO DAILY for IRON SUPPLEMENT, TAB 01/22/22 Ergocalciferol (Vitamin D2) (Vitamin D2) 50 Mcg Tablet, 50 MCG PO DAILY for SUPPLEMENT, TAB 01/22/22 Hydrochlorothiazide (HYDROCHLOROTHIAZIDE CAPSULE ) 12.5 Mg Capsule, 12.5 MG PO DAILY for DIURETIC, CAP 0 Refills 01/22/22 Losartan Potassium (LOSARTAN POTASSIUM) 100 Mg Tablet, 100 MG PO DAILY for HYPERTENSION, TAB 01/22/22 KARLA NEWMAN III DO February 05, 2022 07:50
[2022-02-05] MEDS: hydroCHLOROthiazide 12.5 MG TABLET PO SCH (08:16)
[2022-02-05] MEDS: LOSARTAN POTASSIUM 50 MG TABLET. PO SCH (08:17)
[2022-02-05] MEDS: FERROUS SULFATE 325 MG TABLET. PO SCH (08:18)
[2022-02-05] MEDS: ASPIRIN 325 MG TABLET PO SCH (08:19)
[2022-02-05] MEDS: SENNOSIDES/DOCUSATE 8.6/50MG TABLET. PO SCH (08:19)
[2022-02-05] MEDS: CHOLECALCIFEROL (VITAMIN D3) 1,000 UNIT TABLET PO SCH (08:19)
--- NOTE | 2022-02-05 11:02 | PDOC ---
PROGRESS NOTES Date of Service DATE: 02/05/22 TIME: 11:02 Subjective Subjective POD #2 s/p L MI Patient seen and examined this morning. Awake sitting upright in recliner. Family at bedside. Very pleasant. Conversational. Pain well controlled postoperatively. Working with therapy. Tolerating p.o. intake. Denies any acute events overnight. Objective Vital Signs Vital Signs Date Time Temp Pulse Resp B/P (MAP) Pulse Ox O2 Delivery O2 Flow Rate FiO2 02/05/22 08:17 102 151/71 02/05/22 08:00 Room Air 02/05/22 07:38 98.3 18 99 98.3 02/04/22 09:00 10.0 Physical Exam Orthopedic examination of the left hip: Skin is warm and dry. Surgical dressing intact. No drainage or discharge. Compartments are soft and compressible. EHL/FHL intact. Plantarflexion/dorsiflexion intact. Wiggles all toes on command. Sensation to light touch intact throughout all dermatomes. Cap refill brisk. Left lower extremity is warm and well-perfused. Calf nontender. No pain with passive stretch. No evidence of thrombus. Labs Laboratory Tests Test 02/03/22 12:10 02/04/22 04:55 02/05/22 04:45 White Blood Count 17.3 x10^3/uL (4.0-11.0) Red Blood Count 3.39 x10^6/uL (3.50-5.40) Hemoglobin 10.5 g/dL (12.0-15.5) 9.4 g/dL (12.0-15.5) 8.7 g/dL (12.0-15.5) Hematocrit 31.6 % (36.0-47.0) 28.7 % (36.0-47.0) 25.4 % (36.0-47.0) Mean Corpuscular Volume 93 fL (79-100) Mean Corpuscular Hemoglobin 31 pg (25-35) Mean Corpuscular Hemoglobin Concent 33 g/dL (31-37) 33 g/dL (31-37) 34 g/dL (31-37) Red Cell Distribution Width 13.4 % (11.5-14.5) Platelet Count 249 x10^3/uL (140-400) Neutrophils (%) (Auto) 92 % (31-73) Lymphocytes (%) (Auto) 7 % (24-48) Monocytes (%) (Auto) 1 % (0-9) Eosinophils (%) (Auto) 0 % (0-3) Basophils (%) (Auto) 0 % (0-3) Neutrophils # (Auto) 16.0 x10^3/uL (1.8-7.7) Lymphocytes # (Auto) 1.1 x10^3/uL (1.0-4.8) Monocytes # (Auto) 0.2 x10^3/uL (0.0-1.1) Eosinophils # (Auto) 0.0 x10^3/uL (0.0-0.7) Basophils # (Auto) 0.0 x10^3/uL (0.0-0.2) Sodium Level 139 mmol/L (136-145) Potassium Level 3.6 mmol/L (3.5-5.1) Chloride Level 104 mmol/L (98-107) Carbon Dioxide Level 25 mmol/L (21-32) Anion Gap 10 (6-14) Blood Urea Nitrogen 22 mg/dL (7-20) Creatinine 1.3 mg/dL (0.6-1.0) Estimated GFR (Cockcroft-Gault) 49.1 BUN/Creatinine Ratio 17 (6-20) Glucose Level 201 mg/dL (70-99) Calcium Level 8.8 mg/dL (8.5-10.1) Total Bilirubin 0.3 mg/dL (0.2-1.0) Aspartate Amino Transf (AST/SGOT) 26 U/L (15-37) Alanine Aminotransferase (ALT/SGPT) 28 U/L (14-59) Alkaline Phosphatase 58 U/L (46-116) Total Protein 7.5 g/dL (6.4-8.2) Albumin 3.4 g/dL (3.4-5.0) Albumin/Globulin Ratio 0.8 (1.0-1.7) Laboratory Tests Test 02/05/22 04:45 Hemoglobin 8.7 g/dL (12.0-15.5) Hematocrit 25.4 % (36.0-47.0) Mean Corpuscular Hemoglobin Concent 34 g/dL (31-37) Assessment Assessment 67 y/o F primary osteoarthritis L hip s/p L MI 02/03 - Patricia * WBAT LLE * Anterior lateral hip precautions to include no extension past neutral, no adduction past midline, no external rotation past neutral x6 weeks. * PT/OT for mobilization, gait training and fall prevention * Maintain surgical dressings left hip * Ice operative extremity as needed for pain and discomfort * Hgb 8.7 this AM 5/4; VSS * DVT ppx (ASA 325mg BID) * Post-op abx complete * Encourage use of IS while awake * CM for discharge planning; patient orthopedically stable for discharge. Follow-up per instructions below. * Patient will be weightbearing as tolerated to the left lower extremity upon discharge. Anterior lateral hip precautions to include no extension past neutral, no adduction past midline, no external rotation past neutral x6 weeks. Recommend utilizing a walker to aid with ambulation and prevent falls. DVT prophylaxis with aspirin 325 mg p.o. twice daily on discharge. Follow up with orthopedic clinic in 1-2 weeks following discharge from the hospital. [phone] Justicifation of Admission Dx: Justifications for Admission: Justification of Admission Dx: Yes JEANINE BEE February 05, 2022 11:02
[2022-02-05 11:20] VITALS: BP 117/64
--- NOTE | 2022-02-05 15:05 | NUR ---
Pt DC home in stable condition with belongings per wheelchair. DC instructions and medications reviewed with patient and family, both deny having questions. SL removed, cath intact. Follow up information given to patient and family.
--- NOTE | 2022-02-05 16:21 | PATHOLOGY ---
[facility] Accession Number: [id number] . 01 Material submitted: . femur - LEFT FEMORAL HEAD AND TISSUE . 01 Clinical history: . OA . 02 Diagnosis: Femoral head and segments of soft tissue, left total hip replacement: - Advanced degenerative arthritis with focal subarticular fibrosis, cystic degeneration, and reactive bone formation. (JPM:shayla; 02/05/2022) QMS 02/05/2022 0933 Local . 02 Electronically signed: . Rodger Palencia MD, Pathologist NPI- [id number] . 01 Gross description: . The specimen is received in formalin, labeled "Kavya Perez, left femoral head and tissue". It consists of a femoral head, which measures 4.5 cm in diameter and 3.0 cm in height, and a 4.6 x 2.7 neck. The cartilaginous surface is granular with mild eburnation (10 %) and moderate osteophyte formation. The opposite end shows a flat, firm resection margin. Sectioning reveals the cartilage to range in thickness from 0 cm to 0.2 cm. The cut surfaces show steele-yellow to red, focally hemorrhagic and sclerotic, spoingiotic bone. Also included in the specimen container is a 5.0 x 4.5 x 1.5 cm aggregate of steele yellow, multilobulated, fibroadipose tissue along with steele-white, cauterized, rubbery fibrous soft tissue fragments. It Application Development Manager sections area submitted as follows, following decalcification: A1: Femoral head, to include cartilage A2: Femoral head resection margin A3: Soft tissue, represented (JGG; 02/03/2022) JGG/JGG 02/03/2022 2310 Local . 02 Pathologist provided ICD-10: M16. CPT . 829163, [id number] Specimen Comment: A courtesy copy of this report has been sent to [phone], [phone] Specimen Comment: [id number] Specimen Comment: Report sent to / DR WERNER Specimen Comment: A duplicate report has been generated due to demographic updates. Performed at: 01 [facility] [place] [id number] [facility] [address], [place] [id number] MD Escobar New MD Phone: [phone] Performed at: 02 [facility] [address] [place], [place] [id number] MD Rodger Palencia MD Phone: [phone]
--- NOTE | 2022-02-06 17:25 | DS ---
DATE OF DISCHARGE: 02/05/2022 ADMISSION DIAGNOSIS: Left hip fracture. DISCHARGE DIAGNOSES: Postoperative day #2 left hip arthroplasty, history of hypertension, iron deficiency anemia. HOSPITAL COURSE: The patient is a pleasant, middle-aged female who presented for an elective left hip arthroplasty. She was admitted. We have consulted Orthopedics. She was taken for the surgery. Postoperatively, she did well. Yesterday, I saw her and examined her. She wants to go home with home health. We discharged to home. DISPOSITION: Home with home health. ACTIVITY: As tolerated. DIET: Low sodium. DISCHARGE MEDICATIONS: Please see the MRAD. P.r.n. Percocet 5 mg q. 6 hours, vitamin D, iron, hydrochlorothiazide 12.5 mg a day, losartan 100 mg a day, and meloxicam 15 mg a day p.r.n. Total time 34 minutes. KADIE/BRENDA/BRUCE DR: KADIE/lizeth TID: [id number]
== END 2022-02-05 15:05 | disposition still patient (30) ==
LOC: SURG 06:45 → 4 NORTH 08:27 → INTOOBSV 08:27
PROVIDERS: ADMIT Orthopaedic Surgery; ATTEND Orthopaedic Surgery
DX: M16.12 Unilateral primary osteoarthritis, left hip (principal); Z20.822 Contact with and (suspected) exposure to COVID-19; S72.002A Fracture of unspecified part of neck of left femur, initial encounter for closed fracture; I10 Essential (primary) hypertension; D50.9 Iron deficiency anemia, unspecified; Z79.82 Long term (current) use of aspirin; Y92.89 Other specified places as the place of occurrence of the external cause; Y93.89 Activity, other specified; Y99.8 Other external cause status
CPT/HCPCS: 27130; 36415; 73502; 80053; 85014; 85018; 85025; 86850; 86900; 86901; 88304; 88311; 97110; 97116; 97162; 97166; 97530; 97535; A4213; A4930; A6258; A6550; C1776; G0378; G0379; J0171; J0690; J0780; J1100; J1170; J1885; J2250; J2270; J2370; J2405; J2704; J2710; J2795; J3010; J3490; J3370